=== PATIENT | female | born 1965 | race Asian ===

== ENCOUNTER 2018-07-14 13:49 | Emergency (ER) | payer BC, OTHER ==
[~2018-07-14] VITALS: Ht 157.5 cm; Wt 48.1 kg
[2018-07-14 15:30] VITALS: BP 112/83
--- NOTE | 2018-07-14 16:42 | PHYS DOC ---
Past Medical History Past Medical History: No Pertinent History Past Surgical History: No Surgical History Alcohol Use: None Drug Use: None Adult General Chief Complaint Chief Complaint: MECHANICAL FALL HPI HPI Patient is a 52 year old female who presents to the ER with complaints of a headache and a swollen area to the back of her head. Pt states that she slipped and fell outside this morning. She denies any LOC, nausea, vomiting, vision changes, dizziness, or neck pain. Pt states she has not taken anything for relief of her pain. Currently, her pain is a 8/10 on the pain scale, there are no alleviating or aggravating factors. Review of Systems Review of Systems Constitutional: Denies fever or chills [] Eyes: Denies change in visual acuity, redness, or eye pain [] HENT: Denies nasal bleeding, ear pain, or neck pain Musculoskeletal: Denies back pain or joint pain [] Integument: Denies rash or skin lesions; reports swelling to posterior scalp [] Neurologic: Denies focal weakness or sensory changes; see HPI Current Medications Current Medications Current Medications Medications (Trade) Dose Ordered Sig/Sage Start Time Stop Time Status Last Admin Dose Admin Ibuprofen (Motrin) 600 mg 1X ONCE 07/14/18 16:45 07/14/18 17:00 DC 07/14/18 17:00 600 MG Allergies Allergies Allergies Coded Allergies Type Severity Reaction Last Updated Verified No Known Drug Allergies 07/14/18 No Physical Exam Physical Exam Constitutional: Well developed, well nourished, no acute distress, non-toxic appearance. [] HENT: Normocephalic, atraumatic, bilateral external ears normal, bilateral TMs normal, posterior pharynx normal, oropharynx moist, no oral exudates, nose normal. [] Eyes: PERRLA, EOMI, conjunctiva normal, no discharge. [] Neck: Normal range of motion, no bony tenderness, supple, no stridor. [] Cardiovascular:Heart rate regular rhythm, no murmur [] Lungs & Thorax: Bilateral breath sounds clear to auscultation [] Skin: Warm, dry, no erythema, no rash. [] Extremities: No tenderness, no cyanosis, no clubbing, ROM intact, no edema. [] Neurologic: Alert and oriented X 3, normal motor function, normal sensory function, no focal deficits noted. [] Psychologic: Affect normal, judgement normal, mood normal. [] Current Patient Data Vital Signs Vital Signs Date Time Temp Pulse Resp B/P (MAP) Pulse Ox O2 Delivery O2 Flow Rate FiO2 07/14/18 15:30 99.2 89 16 112/83 (93) 96 Room Air 99.2 EKG EKG [] Radiology/Procedures Radiology/Procedures [] Course & Med Decision Making Course & Med Decision Making Pertinent Labs and Imaging studies reviewed. (See chart for details) [] Dragon Disclaimer Dragon Disclaimer This electronic medical record was generated, in whole or in part, using a voice recognition dictation system. Departure Departure Impression: Primary Impression: Fall from slipping on ice Additional Impressions: Closed head injury without loss of consciousness Scalp hematoma Referrals: NO PCP (PCP) Patient Instructions: Facial or Scalp Contusion, [id number], Head Injury, Adult, [id number] Additional Instructions: Follow the head injury precautions provided. Tylenol or ibuprofen as needed for pain. Recommend application of ice to sore areas as needed for comfort. Follow up with your doctor if symptoms persist, return to the ER if symptoms worsen. Problem Qualifiers Primary Impression: Fall from slipping on ice Encounter type: initial encounter Qualified Codes: W00.9XXA - Unspecified fall due to ice and snow, initial encounter Additional Impressions: Closed head injury without loss of consciousness Encounter type: initial encounter Qualified Codes: S09.90XA - Unspecified injury of head, initial encounter Scalp hematoma Encounter type: initial encounter Qualified Codes: S00.03XA - Contusion of scalp, initial encounter CARISSA PATHAK APRN Jul 14, 2018 16:42
[2018-07-14] MEDS ORDERED: IBUPROFEN 600 MG TABLET. PO ONE (16:45)
== END 2018-07-14 17:29 | disposition home or self-care (01) ==
LOC: ER 13:49
DX: S00.03XA Contusion of scalp, initial encounter (principal); W00.0XXA Fall on same level due to ice and snow, initial encounter; Y93.89 Activity, other specified; Y92.89 Other specified places as the place of occurrence of the external cause; Y99.8 Other external cause status
CPT/HCPCS: 99282

== ENCOUNTER → 2020-09-03 | Outpatient (CLI) | payer SELFPAY ==
--- NOTE | 2020-09-06 19:15 | RAD ---
DATE: 09/03/2020 EXAM: MAMMO YOLI SCREENING BILATERAL HISTORY: Screening COMPARISON: None. This is the patient's baseline exam. This study was interpreted with the benefit of Computerized Aided Detection (CAD). Breast Density: SCATTERED The breast parenchyma shows scattered fibroglandular densities. Breast parenchyma level B. FINDINGS: No mass, suspicious calcification, or architectural distortion in either breast. IMPRESSION: No evidence of malignancy. BI-RADS CATEGORY: 1 NEGATIVE RECOMMENDED FOLLOW-UP: 12M 12 MONTH FOLLOW-UP PQRS compliance statement: Patient information was entered into a reminder system with a target due date for the next mammogram. Mammography is a sensitive method for finding small breast cancers, but it does not detect them all and is not a substitute for careful clinical examination. A negative mammogram does not negate a clinically suspicious finding and should not result in delay in biopsying a clinically suspicious abnormality. "Our facility is accredited by the [employer] Mammography Program."
== END ==
LOC: MAMMO 14:18
PROVIDERS: ATTEND Family Medicine
DX: Z12.31 Encounter for screening mammogram for malignant neoplasm of breast (principal)
CPT/HCPCS: 77063; 77067